=== PATIENT | female | born 1945 | race Caucasian/White ===

== ENCOUNTER 2017-09-19 17:55 | Emergency (ER) | payer MEDICARE, OTHER ==
[2017-09-19] MEDS: DEXAMETHASONE 10 MG/ML 1 ML INJ PO (20:44)
[2017-09-19] MEDS: ALBUTEROL 0.083% (NEB) 2.5 MG/3 ML AMP HHN (21:30)
[2017-09-19] MEDS: IPRATROPIUM (NEB) 0.5 MG/2.5 ML AMP HHN (21:30)
[2017-09-19 21:39] LABS: ADD UMIC NO; UR ASCORBIC ACID 40 mg/dL (NEGATIVE); UR BACTERIA FEW /HPF (NONE SEEN); UR BILIRUBIN (Dip) NEGATIVE (NEGATIVE); UR BLOOD (Dip) NEGATIVE (NEGATIVE); UR CLARITY SLIGHTLY CLOUDY (CLEAR); UR COLOR YELLOW (YELLOW); UR GLUCOSE (Dip) NEGATIVE (NEGATIVE); UR KETONES (Dip) NEGATIVE (NEGATIVE); UR LEUKOCYTE ESTERASE (Dip) NEGATIVE Leu/ul (NEGATIVE); UR NITRITE (Dip) NEGATIVE (NEGATIVE); UR RBC 0 /HPF (0-5); UR SPECIFIC GRAVITY (Dip) 1.015 (1.003-1.030); UR SQUAMOUS EPITHELIAL CELL FEW /HPF (FEW); UR TOTAL PROTEIN (Dip) NEGATIVE (NEGATIVE); UR UROBILINOGEN (Dip) NEGATIVE (NEGATIVE); UR WBC 0 /HPF (0-5)
== END 2017-09-19 22:50 | disposition home or self-care (01) ==
LOC: FTE 17:55
DX: J45.901 Unspecified asthma with (acute) exacerbation (principal); A49.9 Bacterial infection, unspecified
CPT/HCPCS: 81001; 81003; 94664; 99284-25